=== PATIENT | female | born 1990 | race Caucasian/White ===

== ENCOUNTER 2020-09-08 17:26 | Emergency (ER) | payer OTHER, SELFPAY ==
[2020-09-08 17:27] VITALS: BP 118/77; PULSE 88; RESP 14; TEMP 36.7; O2SAT 97; BMI 27.3
--- NOTE | 2020-09-08 17:56 | CT_ITS ---
PROCEDURE INFORMATION: Exam: CT Abdomen And Pelvis With Contrast Exam date and time: 09/08/2020 5:56 PM Age: 30 years old Clinical indication: Abdominal pain; Prior surgery; Surgery date: 6+ months; Surgery type: Gallbladder, tubal; Patient HX: Epigastric pain with n/v TECHNIQUE: Imaging protocol: Computed tomography of the abdomen and pelvis with contrast. Radiation optimization: All CT scans at this facility use at least one of these dose optimization techniques: automated exposure control; mA and/or kV adjustment per patient size (includes targeted exams where dose is matched to clinical indication); or iterative reconstruction. Contrast material: ISOVUE; Contrast volume: 75 ml; Contrast route: IV; COMPARISON: No relevant prior studies available. FINDINGS: Liver: Mild hepatomegaly. Gallbladder and bile ducts: Gallbladder is surgically absent. Pancreas: Normal. Spleen: Normal. Adrenal glands: Normal. No mass. Kidneys and ureters: Normal. Stomach and bowel: Moderate wall thickening of the gastric body and antrum, with adjacent associated inflammatory stranding and fluid, likely gastritis. No definite ulceration or perforation. Appendix: Appendix normal. Intraperitoneal space: Unremarkable. No free air. No significant fluid collection. Vasculature: Phleboliths within the pelvis. Lymph nodes: Unremarkable. No enlarged lymph nodes. Urinary bladder: Unremarkable as visualized. Reproductive: Unremarkable as visualized. Bones/joints: No acute abnormality. Soft tissues: Small fat containing umbilical hernia. IMPRESSION: Moderate wall thickening of the gastric body and antrum, with adjacent associated inflammatory stranding and fluid, likely gastritis. No definite ulceration or perforation.
[2020-09-08 18:00] LABS: Basophils # 0.2 K/mm3 (0-0.2); Eosinophils # 0.3 K/mm3 (0.0-0.4); Eosinophils % 1.9 % (0.1-12.0); Hematocrit 45.6 % (37.0-47.0); Hemoglobin 15.6 g/dL (12.2-16.2); Lymphocytes # 3.6 K/mm3 (0.7-4.5); Lymphocytes % 20.8 % (10-50); Mean Corpuscular HGB Conc 34.1 g/dL (31.8-35.4); Mean Corpuscular Hemoglobin 30.8 pg (27.0-31.2); Mean Corpuscular Volume 90.2 fl (81-99); Mean Platelet Volume 7.7 fl (7.4-10.4); Monocytes # 0.7 K/mm3 (0.1-1.0); Monocytes % 3.9 % (1.7-9.3); Neutrophils # 12.3 K/mm3 (1.8-7.8); Neutrophils % 72.4 % (37.0-80.0); Platelet Count 508 K/mm3 (142-424); Red Blood Count 5.05 M/mm3 (4.20-5.40); Red Cell Distribution Width 13.6 % (11.5-17.5); White Blood Count 17.1 K/mm3 (4.8-10.8)
[2020-09-08 18:01] LABS: MANUAL DIFFERENTIAL MANUAL DIFFERENTIAL (MANUAL DIFF)
[2020-09-08 18:05] LABS: Alanine Aminotransferase 15 U/L (12-78); Albumin Level 4.4 g/dl (3.5-5.0); Albumin/Globulin Ratio 1.6 (1.1-1.8); Alkaline Phosphatase 95 U/L (38-126); Amylase 75 U/L (30-110); Anion Gap 14.2 mEq/L (5-15); Aspartate Amino Transferase 28 U/L (14-36); Bilirubin,Total 0.4 mg/dl (0.2-1.3); Blood Urea Nitrogen 8 mg/dl (7-17); Calcium 9.2 mg/dl (8.4-10.2); Carbon Dioxide 30 mmol/L (22.0-30.0); Chloride 100 mmol/L (98-107); Creatinine Clearance Estimated 117 mL/min (50-200); Estimated Glomerular Filt Rate 98 ml/min (>60); GFR (African American) 118 ML/MIN (>60); Globulin 2.8 g/dL (1.3-3.2); Glucose 108 mg/dl (74-100); Lipase 85 U/L (23-300); Potassium 4.2 mmoL/L (3.5-5.1); Sodium 140 mmol/L (136-145); Total Protein,Serum 7.2 g/dl (6.3-8.2)
[2020-09-08 18:11] LABS: Eosinophils % 1 % (0-3); Lymphocytes % 24 % (10-50); Monocytes % 2 % (2-9); Neutrophils % 73 % (42-76); Platelet Estimate Slight Increase; RBC Morphology Normal; Total Cells Counted 100
--- NOTE | 2020-09-08 18:41 | PC.NURSE ---
pt returned from rad.
--- NOTE | 2020-09-08 18:49 | [facility].EDGENADL ---
ED Disposition Condition on Discharge: Fair - Critical Care Critical Care Time: No <Kuldeep Guzmán - Last Filed: 09/08/20 21:18> <Leroy Gunderson - Last Filed: 09/08/20 22:58> Clinical Impression: Epigastric pain Vomiting Qualifiers: Vomiting type: unspecified Vomiting Intractability: intractable Nausea presence: with nausea Qualified Code(s): R11.2 - Nausea with vomiting, unspecified Gastritis Qualifiers: Gastritis type: unspecified gastritis Chronicity: acute Gastritis bleeding: without bleeding Qualified Code(s): K29.00 - Acute gastritis without bleeding Disposition: Home, Self-Care Instructions: DI for Acute Abdominal Pain Additional Instructions: call dr onofre thursday am and pcp Prescriptions: Sucralfate [Carafate 1gm Tab] 1 gm PO ACHS #120 tab Prescription Printed Pantoprazole Sodium [Protonix 40mg tablet] 40 mg PO HS #30 tab Prescription Printed ondansetron HCL [Zofran 4mg Tab] 4 mg PO TID #30 tab Prescription Printed Referrals: ProviderDung MD [Primary Care Provider] - Eulalio Onofre MD [Staff Physician] - Attestation: On 09/08/20, the high probability of a clinically significant, sudden or life threatening deterioration of the following system(s) required my full and direct attention, intervention and personal management. The time I documented below is in addition to time spent performing reported procedures but includes the following listed in this critical care notation. Medical Decision Making - Aiden Inquiry Pt receiving controlled substance: No - Lab Data Result diagrams: 09/08/20 17:45 09/08/20 17:45 - Physician Consults Physician Consulted: Jemima Time: 20:00 Reason -: Surgical Eval/Care Comment/Response: Requests CT with oral contrast, Gastroview, to rule out gastric perforation. Additional Consult: Julia Time: 20:37 Reason -: Admission, Pt condition Comment/Response: Discussed case. Contrast CT pending at this point. Spoke with Dr. Dumont about possible admission depending on scan results. He feels patient will likely either need surgical admission or transfer. <FaustinoKuldeep campuzano - Last Filed: 09/08/20 21:18> - Lab Data Lab results reviewed: Yes: I reviewed the patient's lab results. Result diagrams: 09/08/20 17:45 09/08/20 17:45 - CT Data CT Scan: Abdomen, Pelvis Time Received: 22:[address] Reviewed: Yes: I have viewed the radiologist's interpretation Preliminary Findings: Abnormal (see report ) <Leroy Gunderson S - Last Filed: 09/08/20 22:58> Vital Signs: 09/08/20 17:27 09/08/20 20:00 Temperature 98.1 F Temperature Source Oral Pulse Rate 75 Pulse Rate [Right] 88 Respiratory Rate 14 Blood Pressure 125/76 Blood Pressure [Right Arm] 118/77 Blood Pressure Mean [Right Arm] 90 02 Sat by Pulse Oximetry 97 100 Oxygen Delivery Method Room Air - Lab Data Lab Results 09/08/20 17:45: WBC 17.1 H, RBC 5.05, Hgb 15.6, Hct 45.6, MCV 90.2, MCH 30.8, MCHC 34.1, RDW 13.6, Plt Count 508 H, MPV 7.7, Neut % (Auto) 72.4, Lymph % (Auto) 20.8, [place] % (Auto) 3.9, Eos % (Auto) 1.9, Baso % (Auto) 1.0, Neut # (Auto) 12.3 H, Lymph # (Auto) 3.6, [place] # (Auto) 0.7, Eos # (Auto) 0.3, Baso # (Auto) 0.2, Total Counted 100, Neutrophils % (Manual) 73, Lymphocytes % (Manual) 24, Monocytes % (Manual) 2, Eosinophils % (Manual) 1, Platelet Estimate Slight increase, RBC Morphology Normal 09/08/20 17:45: Sodium 140, Potassium 4.2, Chloride 100, Carbon Dioxide 30, Anion Gap 14.2, BUN 8, Creatinine 0.70, Estimated Creat Clear 117, Estimated GFR 98, Est GFR ( Amer) 118, Glucose 108 H, Calcium 9.2, Total Bilirubin 0.4, AST 28, ALT 15, Alkaline Phosphatase 95, Total Protein 7.2, Albumin 4.4, Globulin 2.8, Albumin/Globulin Ratio 1.6, Amylase 75, Lipase 85 09/08/20 19:07: Urine Color Yellow, Urine Appearance Cloudy, Urine pH 8.0, Ur Specific [place] 1.010, Urine Protein Negative, Urine Glucose (UA) Negative, Urine Ketones Negative, Urine Blood Negative, Urine Nitr
--- NOTE | 2020-09-08 19:04 | PC.NURSE ---
MD aware of patient reporting a codeine allergy. Ok'd Morphine administration
[2020-09-08 19:14] LABS: Microscopic, Urine URINE MICROSCOPIC (MICROSCOPIC)
[2020-09-08 19:16] LABS: Appearance,Urine CLOUDY (Clear); Bilirubin,Urine Negative (Negative); Blood, Urine Negative (Negative); Color,Urine YELLOW (Yellow); Glucose,Urine (UA) Negative (Negative); Ketones,Urine Negative (Negative); Leukocyte Esterase,Urine Negative (Negative); Nitrate,Urine Negative (Negative); Protein,Urine Negative (Negative)
[2020-09-08 19:24] LABS: Amorphous Sediment,Urine 2+ /lpf; Bacteria,Urine 2+ /lpf
[2020-09-08 20:00] VITALS: BP 125/76; PULSE 75; O2SAT 100
--- NOTE | 2020-09-08 20:05 | PC.NURSE ---
Dr Guzmán speaking with Dr Onofre
--- NOTE | 2020-09-08 20:13 | CT_ITS ---
PROCEDURE INFORMATION: Exam: CT Abdomen And Pelvis Without Contrast Exam date and time: 09/08/2020 8:13 PM Age: 30 years old Clinical indication: Nausea and vomiting; Patient HX: N/v; Additional info: Gastroview oral contrast. R/O perforation stomach TECHNIQUE: Imaging protocol: Computed tomography of the abdomen and pelvis without contrast. Radiation optimization: All CT scans at this facility use at least one of these dose optimization techniques: automated exposure control; mA and/or kV adjustment per patient size (includes targeted exams where dose is matched to clinical indication); or iterative reconstruction. COMPARISON: CT ABDOMEN PELVIS W CON 09/08/2020 6:29 PM FINDINGS: Liver: Mild hepatomegaly. Gallbladder and bile ducts: Gallbladder surgically absent. Pancreas: Normal. Spleen: Normal. Adrenal glands: Normal. No mass. Kidneys and ureters: Normal. Stomach and bowel: Moderate wall thickening of the gastric body and antrum, with adjacent associated fat stranding and fluid, likely gastritis. No evidence of ulceration or perforation as described previously. Appendix: Appendix normal. Intraperitoneal space: Small amount of pelvic free fluid. Vasculature: Phleboliths within the pelvis. Lymph nodes: Few small esmer antral lymph nodes, likely reactive. Urinary bladder: Unremarkable as visualized. Reproductive: Unremarkable as visualized. Bones/joints: No acute abnormality. Soft tissues: Normal. IMPRESSION: Moderate wall thickening of the gastric body and antrum, with adjacent associated fat stranding and fluid, likely gastritis. No evidence of ulceration or perforation as described previously.
--- NOTE | 2020-09-08 20:47 | PC.NURSE ---
pt completed contrast notified radiology
[2020-09-08 23:03] VITALS: BP 127/81; PULSE 72; RESP 16; TEMP 36.7; O2SAT 99
== END 2020-09-08 23:07 | disposition home or self-care (01) ==
PROVIDERS: Emergency Medicine; Emergency Provider Emergency Medicine
DX: K29.00 Acute gastritis without bleeding (principal); F17.210 Nicotine dependence, cigarettes, uncomplicated
CPT/HCPCS: 74176; 74177; 80053; 81001; 82150; 83690; 85007; 85025; 87086; 96365; 96375; 99283; J2405; Q9967